=== PATIENT | female | born 1995 | race Caucasian/White ===

== ENCOUNTER → 2017-10-20 | Outpatient (CLI) | payer BC | LOC: YCFC.O 15:57 | PROVIDERS: ATTEND Nurse Practitioner Family | DX: L28.2 Other prurigo (principal) ==

== ENCOUNTER → 2017-10-26 | Outpatient (CLI) | payer BC | LOC: YCFC.O 17:39 | PROVIDERS: ATTEND Nurse Practitioner Family | DX: L28.2 Other prurigo (principal) ==

== ENCOUNTER → 2019-01-24 | Outpatient (CLI) | payer BC | LOC: LAB.O 10:06 | PROVIDERS: ATTEND Nurse Practitioner | DX: R53.83 Other fatigue (principal); R82.79 Other abnormal findings on microbiological examination of urine ==